=== PATIENT | male | born 1995 | race Caucasian/White ===

== ENCOUNTER 2018-12-29 06:33 | Day surgery (SDC) | payer OTHER ==
[~2018-12-29] VITALS: Ht 172.7 cm; Wt 90.7 kg
[~2018-12-29 06:33] MED LIST: PRED20TA PO
[2018-12-29] MEDS ORDERED: LIDOCAINE 1% MDV 20ML VIAL As Ordered ONE (09:01)
[2018-12-29] MEDS ORDERED: BUPIVACAINE HCL 0.5% 10 ML VIAL As Ordered ONE (09:01)
[2018-12-29] MEDS ORDERED: fentaNYL 250 MCG/5 ML INJECTION (J3010) As Ordered ONE (09:36)
[2018-12-29] MEDS ORDERED: LIDOCAINE 2% INJ 100 MG/5 ML SDV (FOR ANES.) As Ordered ONE (09:36)
[2018-12-29] MEDS ORDERED: dexameTHASONE 4 MG/ML 1ML VIAL (J1100) As Ordered ONE (09:36)
[2018-12-29] MEDS ORDERED: MIDAZOLAM INJ 2 MG/2 ML VIAL (J2250) As Ordered ONE (09:36)
[2018-12-29] MEDS ORDERED: SUGAMMADEX SODIUM 500 MG/5 ML VIAL (BRIDION) As Ordered ONE (09:36)
[2018-12-29] MEDS ORDERED: ONDANSETRON 4MG/2ML VIAL (J2405) As Ordered ONE (09:36)
[2018-12-29] MEDS ORDERED: ROCURONIUM BROMIDE 50 MG/5 ML VIAL As Ordered ONE (09:36)
[2018-12-29] MEDS ORDERED: PROPOFOL 200 MG/20 ML VIAL As Ordered ONE ×2 (09:36→10:35)
--- NOTE | 2018-12-29 10:12 | RO ---
DATE OF PROCEDURE: 12/29/2018 PREOPERATIVE DIAGNOSIS: Chronic tonsillitis. POSTOPERATIVE DIAGNOSIS: Chronic tonsillitis. OPERATION PERFORMED: Coblation tonsillectomy. SURGEON: Jann Wright Jr, MD PLAY READER: ANESTHESIA: General via endotracheal tube. INDICATIONS FOR PROCEDURE: Chronic tonsillitis. PROCEDURE IN DETAIL: With the patient in the supine position after being intubated, prepped and draped in the usual fashion ,the patient had been turned 90 degrees and placed in a Tara position. The red rubber Banerjee was placed through the left nasal cavity and brought out through the oral cavity after the John mouth Pipo retractor had been placed with a grooved tongue blade. After adequate exposure had been accomplished and timeout had been previously performed, the left tonsil was dissected out of the tonsillar fossa medializing it with a curved tonsillar Allis clamp and a coblation Evac-70 wand was utilized to dissect the tonsillar fossa with coblation setting 7 and coagulation 3. The left side was dissected out first and then in a similar fashion the right side was dissected out. There was no bleeding. The tonsillar fossas were irritated with the tonsillar sponge to try and promote any bleeding. There was no further bleeding. Injection of lidocaine 1% and 0.25% bupivacaine was injected into the tonsillar fossa with a 27 gauge needle. Again, further areas were attempted to irritate. There was spot bleeding that was coagulated on the right mid pole, but otherwise there was no other bleeding. The cold saline irrigation was used to irrigate further. There was no further bleeding. The adenoid area was inspected. There was minimal adenoid tissue, however, there was significant tonsillar hypertrophy and bluish hue present. The patient had retractors completely released and then reevaluated and Valsalva was done. There was no further bleeding. No complications. At this point, everything was removed and the patient was then turned over to the anesthesiologist. There were no problems and no complications of surgery.
[2018-12-29] MEDS: PERCOCET 5MG/325MG TAB PO PRN ×2 (10:20→10:51)
[2018-12-29] MEDS ORDERED: PERCOCET 5MG/325MG TAB As Ordered ONE (10:20)
[2018-12-29] MEDS ORDERED: fentaNYL 100 MCG/2 ML INJECTION (J3010) IV PRN (10:30)
[2018-12-29] MEDS ORDERED: HYDROcodone/APAP LIQUID 7.5-325MG 15ML UDC (LORTAB ELIXIR) PO PRN (10:30)
[2018-12-29 11:00] VITALS: BP 153/85
== END 2018-12-29 11:34 | disposition home or self-care (01) ==
LOC: M SDC 06:33
PROVIDERS: ATTEND Otolaryngology
DX: J35.01 Chronic tonsillitis (principal)
CPT/HCPCS: 42826; 88302; J1100; J2250; J2405; J3010

== ENCOUNTER 2019-01-01 17:56 | Emergency (ER) | payer OTHER ==
[~2019-01-01] VITALS: Ht 172.7 cm; Wt 90.9 kg
[2019-01-01] MEDS ORDERED: HYDROCODONE-ACETAMN (18:01)
[2019-01-01] MEDS ORDERED: LIDVISCBTL (18:01)
[2019-01-01] MEDS ORDERED: HYDROcodone/APAP LIQUID 7.5-325MG 15ML UDC (LORTAB ELIXIR) PO ONE (19:30)
[2019-01-01 19:31] VITALS: BP 134/65
[2019-01-01] MEDS ORDERED: HYDR1SOL PO (19:46)
--- NOTE | 2019-01-02 10:10 | HPE ---
DATE OF ADMISSION: 01/01/2019 Augusta is a 23-year-old gentleman who had a tonsillectomy four days ago. He woke up from his nap this afternoon and had some bleeding from the right side. The bleeding continued and he presented to the emergency department. The bleeding has stopped. He does have a sore throat obviously but no problems with breathing. He is able to swallow. Examination shows no evidence of blood, bright red and dark. He has scabs on both tonsils. The rest of the examination is normal. IMPRESSION: Patient has some postoperative tonsillar hemorrhage and it appears to be have stopped now. PLAN: The patient can be discharged and followup as necessary.
== END 2019-01-01 20:16 | disposition home or self-care (01) ==
LOC: M ED 17:56
DX: J95.830 Postprocedural hemorrhage of a respiratory system organ or structure following a respiratory system procedure (principal)

== ENCOUNTER → 2023-08-17 | Outpatient (CLI) | payer OTHER ==
[~2023-08-17] MED LIST changes: +E-Z-GAS II EFFERVESCENT PACKET (SODIUM BICARB./CITRIC ACID/SIMETHICONE) As Ordered ONE; +E-Z-HD 98% w/w 340GM SUSP BTL As Ordered ONE; +E-Z-PAQUE 96% w/w SUSP 176GM BTL As Ordered ONE; +HYDR1SOL PO; +HYDROCODONE-ACETAMN; +LIDVISCBTL
== END ==
LOC: M RAD 08:48
PROVIDERS: ATTEND Physician Assistant
DX: R10.13 Epigastric pain (principal); K21.9 Gastro-esophageal reflux disease without esophagitis

== ENCOUNTER 2023-11-18 12:09 | Day surgery (SDC) | payer OTHER ==
[~2023-11-18] VITALS: Ht 172.7 cm; Wt 101.8 kg
[~2023-11-18 12:09] MED LIST changes: -E-Z-GAS II EFFERVESCENT PACKET (SODIUM BICARB./CITRIC ACID/SIMETHICONE) As Ordered ONE; -E-Z-HD 98% w/w 340GM SUSP BTL As Ordered ONE; -E-Z-PAQUE 96% w/w SUSP 176GM BTL As Ordered ONE; +NS 1,000 ML IV ONE; +OMEP40CA5 PO; +ROSU5TAB5 PO; +SERT25TA21 PO
[2023-11-18] MEDS ORDERED: fentaNYL 100 MCG/2 ML INJECTION As Ordered ONE (12:25)
[2023-11-18] MEDS ORDERED: LIDOCAINE 2% 100MG/5ML SDV (FOR ANES.) As Ordered ONE (12:25)
[2023-11-18] MEDS ORDERED: propofoL 200 MG/20 ML VIAL As Ordered ONE (12:25)
[2023-11-18 13:39] VITALS: TEMP 98.3
[2023-11-18 13:55] VITALS: BP 135/81; O2SAT 98
== END 2023-11-18 14:19 | disposition home or self-care (01) ==
LOC: M OPP 12:09
PROVIDERS: ATTEND Internal Medicine Gastroenterology
DX: K22.89 Other specified disease of esophagus (principal); K29.70 Gastritis, unspecified, without bleeding; R10.13 Epigastric pain; R12 Heartburn; R07.9 Chest pain, unspecified; Z79.02 Long term (current) use of antithrombotics/antiplatelets; Z79.899 Other long term (current) drug therapy
CPT/HCPCS: 43239; 88305; J3010

== ENCOUNTER → 2023-12-15 | Outpatient (CLI) | payer OTHER ==
[~2023-12-15] MED LIST changes: -NS 1,000 ML IV ONE
== END ==
LOC: M RAD 07:21
PROVIDERS: ATTEND Nurse Practitioner Family
DX: R10.811 Right upper quadrant abdominal tenderness (principal)